=== PATIENT | male | born 1985 | race Caucasian/White ===

== ENCOUNTER 2022-11-10 09:46 | Emergency (ER) | payer OTHER, SELFPAY ==
[2022-11-10] MEDS ORDERED: levETIRAcetam 500 MG/5 ML VIAL ONE (10:25)
[2022-11-10] MEDS ORDERED: Lorazepam 2 MG/ML VIAL ONE ×4 (10:25→20:13)
[2022-11-10] MEDS ORDERED: Sodium Chloride 0.9% 1,000 ML ONE (10:25)
[2022-11-10 10:39] LABS: Amphetamine Not Detected (NotDetected); Barbiturates Screen Not Detected (NotDetected); Benzodiazepine Screen Not Detected (NotDetected); Cocaine Metabolite Screen Not Detected (NotDetected); Methadone Not Detected (NotDetected); Methamphetamine Not Detected (NotDetected); Opiate Screen Not Detected (NotDetected); Oxycodone Screen Not Detected (NotDetected); Phencyclidine (PCP) Not Detected (NotDetected); THC/Cannabinoid Screen Detected (NotDetected); Tricyclic Screen Not Detected (NotDetected)
[2022-11-10 10:43] LABS: ALT (SGPT) 63 U/L (8-55); AST (SGOT) 90 U/L (5-34); Acetaminophen Less than 10 mcg/mL (10.0-30.0); Albumin 4.2 g/dL (3.5-5.0); Alcohol Less than 10.0 mg/dL (Less than 10); Alkaline Phosphatase 45 U/L (40-110); Anion Gap 15 mmol/L (10-20); BUN (Urea Nitrogen) 11 mg/dL (8.9-20.6); Bilirubin, Total 1.1 mg/dL (0.2-1.2); Calc. Creatinine Clearance 0 mL/min (70-130); Calcium 9.2 mg/dL (7.8-10.44); Carbon Dioxide 24 mmol/L (22-29); Chloride 104 mmol/L (98-107); Estimated GFR 113; Globulin 3.2 g/dL (2.4-3.5); Glucose 80 mg/dL (70-105); Potassium 3.9 mmol/L (3.5-5.1); Protein, Total 7.4 g/dL (6.0-8.3); Salicylate Less than 8.0 mg/dL (15.0-30.0); Sodium 139 mmol/L (136-145)
[2022-11-10 10:44] LABS: #Basophils 0.1 thou/uL (0.0-0.2); #Lymphocytes 1.1 thou/uL (1.20-3.40); #Monocytes 0.9 thou/uL (0.11-0.59); #Neutrophils 5.7 thou/uL (1.40-6.50); %Basophils 1.3 % (0.0-1.0); %Eosinophils 0.5 % (0.0-10.0); %Monocytes 11.2 % (0.0-10.0); %Neutrophils 72.9 % (42.0-75.0); Hematocrit 41.4 % (42.0-52.0); Hemoglobin 14.9 g/dL (14.0-18.0); Mean Corpuscular HGB CONC 35.9 g/dL (32.0-36.0); Mean Corpuscular Hemoglobin 36.9 pg (27.0-31.0); Mean Corpuscular Volume 102.8 fl (78.0-98.0); Platelet Count 209 10x3/uL (130-400); RBC Distribution Width 11.4 % (11.5-14.5); Red Blood Cell (RBC) Count 4.03 mill/uL (4.70-6.10); White Blood Cell (WBC) Count 7.7 10x3/uL (4.8-10.8)
[2022-11-10] MEDS ORDERED: Nicotine 7 MG PATCH ONE (21:49)
[2022-11-10] MEDS ORDERED: Nicotine 21 MG PATCH TOP SCH (22:00)
[2022-11-11] MEDS ORDERED: levETIRAcetam 500 MG TAB ONE (10:13)
[2022-11-11] MEDS ORDERED: levETIRAcetam 500 MG/5 ML VIAL ONE (10:13)
[2022-11-11] MEDS ORDERED: Lisinopril 10 MG TAB ONE (10:13)
== END 2022-11-11 11:29 | disposition short-term general hospital (02) ==
LOC: MADERS 09:46
DX: G40.909 Epilepsy, unspecified, not intractable, without status epilepticus (principal); R44.0 Auditory hallucinations; F17.210 Nicotine dependence, cigarettes, uncomplicated
CPT/HCPCS: 70450; 80053; 80306; 80307; 85025; 93005; 96361; 96374; 96376; J1953; J2060; J7050

== ENCOUNTER 2023-08-30 17:35 | Emergency (ER) | payer SELFPAY ==
[2023-08-30 18:48] LABS: #Lymphocytes 0.7 thou/uL (1.20-3.40); #Monocytes 0.6 thou/uL (0.11-0.59); #Neutrophils 5.8 thou/uL (1.40-6.50); %Basophils 0.7 % (0.0-1.0); %Eosinophils 0.1 % (0.0-10.0); %Lymphocytes 10.2 % (21.0-51.0); %Monocytes 8.8 % (0.0-10.0); %Neutrophils 80.3 % (42.0-75.0); Hematocrit 41.7 % (42.0-52.0); Hemoglobin 13.7 g/dL (14.0-18.0); Mean Corpuscular HGB CONC 32.7 g/dL (32.0-36.0); Mean Corpuscular Hemoglobin 35.7 pg (27.0-31.0); Mean Platelet Volume 7.6 fL (7.4-10.4); Platelet Count 129 10x3/uL (130-400); Red Blood Cell (RBC) Count 3.83 mill/uL (4.70-6.10); White Blood Cell (WBC) Count 7.2 10x3/uL (4.8-10.8)
[2023-08-30 19:01] LABS: ALT (SGPT) 69 U/L (8-55); AST (SGOT) 202 U/L (5-34); Albumin 3.9 g/dL (3.5-5.0); Alkaline Phosphatase 95 U/L (40-110); Anion Gap 18 mmol/L (10-20); BUN (Urea Nitrogen) 13 mg/dL (8.9-20.6); Bilirubin, Total 1.5 mg/dL (0.2-1.2); Calc. Creatinine Clearance 0 mL/min (70-130); Calcium 8.8 mg/dL (7.8-10.44); Carbon Dioxide 19 mmol/L (22-29); Chloride 102 mmol/L (98-107); Estimated GFR 106; Globulin 3.1 g/dL (2.4-3.5); Glucose 103 mg/dL (70-105); Sodium 135 mmol/L (136-145)
[2023-08-30 19:02] LABS: Macrocytosis SLIGHT = 6-15 cells (100X) (0-5/hpf)
[2023-08-30] MEDS ORDERED: Lidocaine 1% w/Epinephrine 1:100K 20 ML VIAL ONE (21:55)
== END 2023-08-30 22:50 | disposition home or self-care (01) ==
LOC: MADERS 17:35
DX: R55 Syncope and collapse (principal); S01.111A Laceration without foreign body of right eyelid and periocular area, initial encounter; F17.210 Nicotine dependence, cigarettes, uncomplicated; W18.30XA Fall on same level, unspecified, initial encounter
CPT/HCPCS: 12013; 36415; 70450; 71045; 80053; 85025; 93005